=== PATIENT | male | born 1995 | race African-American/Black ===

== ENCOUNTER 2023-04-05 22:54 | Emergency (ER) | payer SELFPAY ==
[2023-04-05] MEDS ORDERED: EPINEPHrine 1 MG/ML VIAL ONE (23:17)
[2023-04-05] MEDS ORDERED: diphenhydrAMINE 50 MG/ML VIAL ONE (23:23)
[2023-04-05] MEDS ORDERED: Famotidine/PF 20 mg/2ml Vial ONE (23:24)
[2023-04-05] MEDS ORDERED: predniSONE 20 MG TAB ONE (23:24)
== END 2023-04-05 23:59 | disposition home or self-care (01) ==
LOC: ERS 22:54
DX: T78.00XA Anaphylactic reaction due to unspecified food, initial encounter (principal)
CPT/HCPCS: 96361; 96372; 96374; 96375; J0171; J1200; J7512; S0028